=== PATIENT | female | born 1995 | race Caucasian/White ===

== ENCOUNTER 2021-12-27 20:37 | Emergency (ER) | payer MEDICAID ==
[2021-12-27 21:34] LABS: ANION GAP 13.1 mmol/L (5-15); CHLORIDE,CL 106 mmol/L (98-107); SODIUM,NA 139 mmol/L (136-145)
[2021-12-27] MEDS: Iopamidol 755 Mg/ML 100 ML Bottle IVPUSH ONE (22:18)
== END 2021-12-27 23:13 | disposition home or self-care (01) ==
LOC: VM.ED 20:37
DX: R07.89 Other chest pain (principal); Z88.1 Allergy status to other antibiotic agents
CPT/HCPCS: 71275; 80053; 82150; 82550; 83615; 83690; 83880; 84484; 85025; 85379; 86140; 93005; 99284; 99285-25; Q9967